=== PATIENT | female | born 1985 | race African-American/Black ===

== ENCOUNTER 2016-03-23 09:30 | Emergency (ER) | payer SELFPAY ==
[~2016-03-23] VITALS: Ht 152.4 cm; Wt 59.0 kg
[~2016-03-23 09:30] MED LIST: PROM6.257 PO; Z.0.NO CURRENT MEDS
[2016-03-23 09:31] VITALS: BP 114/70; PULSE 98; RESP 16; TEMP 98; O2SAT 98
[2016-03-23] MEDS ORDERED: FLUT50SP EACH NARE (10:35)
[2016-03-23] MEDS ORDERED: AMOX875T PO (10:35)
[2016-03-23] MEDS ORDERED: IPRA0.06 EACH NARE (10:35)
--- NOTE | 2016-03-23 10:35 | PD ---
HPI Chief Complaint: ENT Complaint Time Seen by Provider: 10:27 Travel History International Travel<30 days: No Contact w/Intl Traveler<30days: No Traveled to known affect area: No History of Present Illness HPI Patient's 30-year-old female who presents emergency for evaluation of sore throat, nasal congestion, cough. Patient reports subjective fevers and chills but denies any nausea, vomiting, abdominal pain, chest pain, diarrhea or shortness of breath. She reports her symptoms have been ongoing for 4-5 days, she reports that she looked at her throat last night and noticed white spots on her right tonsil. [facility] Past Medical History Medical History: Denies Significant Hx Seizures: Yes ?: Not : 0 Social History Alcohol Use: Yes (SOCIALLY) Tobacco Use: No Substance Use: No Allergies-Medications (Allergen,Severity, Reaction): Coded Allergies: No Known Allergies (Verified , 03/23/16) Reported Meds & Prescriptions Reported Meds & Active Scripts Active No Active Prescriptions or Reported Medications Review of Systems Except as stated in HPI: all other systems reviewed are Neg General / Constitutional: Positive: Chills, No: Fever HENT: Positive: Sore Throat, Rhinitis, Congestion, No: Neck Pain, Earache Cardiovascular: No: Chest Pain or Discomfort Respiratory: Positive: Cough, No: Shortness of Breath Gastrointestinal: No: Nausea, Vomiting, Diarrhea, Abdominal Pain Musculoskeletal: No: Myalgias Physical Exam Narrative GENERAL: Well-nourished, well-developed patient. SKIN: Warm and dry. HEAD: Normocephalic. ENT: Mucosa pink and moist. Moderate erythema to posterior pharynx, no enlarged tonsils, white exudate noted on right tonsil. No uvular edema. No uvular, palatal, or tonsillar deviation. Airway patent. Nasal turbinates appear normal without nasal blood, purulent drainage or septal hematoma. Cobblestone appearance to posterior pharynx. Nasal turbinates appear edematous. EYES: No scleral icterus. No injection or drainage. NECK: Supple, trachea midline. No JVD . Cervical lymphadenopathy noted. CARDIOVASCULAR: Regular rate and rhythm without murmurs, gallops, or rubs. RESPIRATORY: Breath sounds equal bilaterally. No accessory muscle use. GASTROINTESTINAL: Abdomen soft, non-tender, nondistended. MUSCULOSKELETAL: No cyanosis, or edema. BACK: Nontender without obvious deformity. No CVA tenderness. Data Data Last Documented VS Vital Signs Date Time Temp Pulse Resp B/P Pulse Ox O2 Delivery O2 Flow Rate FiO2 03/23/16 09:31 98.0 98 16 114/70 98 Room Air MDM Medical Decision Making Medical Screen Exam Complete: Yes Emergency Medical Condition: Yes Interpretation(s) Vital Signs Date Time Temp Pulse Resp B/P Pulse Ox O2 Delivery O2 Flow Rate FiO2 03/23/16 09:31 98.0 98 16 114/70 98 Room Air Differential Diagnosis Tonsillitis versus pharyngitis versus viral URI versus bronchitis versus pneumonia versus other Narrative Course Patient is a 22-year-old female who presented to emergency department for evaluation of nasal congestion, cough, sore throat. Her symptoms have been ongoing for 4 days. She is afebrile, her vital signs are stable. Physical examination appears most consistent with a viral URI, patient was encouraged to continue with symptomatic management. She will be provided with a prescription for antibiotic however she was advised that she would likely get more relief from [id number] Sudafed or Mucinex DM to help dry up nasal passages which would likely alleviate the cough that is secondary to postnasal drip. She verbalized understanding of these instructions. She verbalized understanding that she needed to complete full course of antibiotics if she did start to take them. She was encouraged to return to emergency department for any new or worsening symptoms. Patient is stable for discharge. Diagnosis Primary Impression: Viral URI with cough Referrals: Primary Care Physician Patient Instructions: General Instructions, Upper Respiratory Infection (ED) Additional Instructions: Follow-up with your primary doctor Take medications as directed Continue symptomatic management Return to emergency department for any new or worsening symptoms Med/Other Pt SpecificInfo: Prescription(s) given Scripts Ipratropium Nasal 0.06% Spray1 [place] EACH NARE QID #1 BOTTLE Ref 0 Prov:Tameka Quijano 03/23/16 Fluticasone Nasal [place] 50 Mcg/Act [id number] Mcg EACH NARE DAILY #1 BOTTLE Ref 0 50 mcg/spray Prov:Tameka Quijano 03/23/16 Amoxicillin 875 Mg [id number] Mg PO BID 10 Days Ref 0 Prov:Tameka Quijano 03/23/16 Disposition: 01 DISCHARGE HOME Condition: Stable Tameka Quijano Mar 23, 2016 10:35
== END 2016-03-23 11:33 | disposition home or self-care (01) ==
LOC: NEPB 09:30
DX: J06.9 Acute upper respiratory infection, unspecified (principal); R05 Cough
CPT/HCPCS: 99283

== ENCOUNTER 2016-03-29 10:48 | Emergency (ER) | payer SELFPAY ==
[~2016-03-29 10:48] MED LIST changes: +AMOX875T PO; +FLUT50SP EACH NARE; +IPRA0.06 EACH NARE; -PROM6.257 PO; -Z.0.NO CURRENT MEDS
[2016-03-29 10:53] VITALS: BP 138/68; PULSE 76; RESP 1; RESP 12; TEMP 98.2; O2SAT 100
== END 2016-03-29 11:30 | disposition left against medical advice (07) ==
LOC: NED 10:48
DX: R56.9 Unspecified convulsions (principal); Z53.21 Procedure and treatment not carried out due to patient leaving prior to being seen by health care provider
CPT/HCPCS: 99281